=== PATIENT | male | born 1945 | race Caucasian/White ===

== ENCOUNTER → 2016-04-08 | Outpatient (CLI) | payer MEDICARE, MEDICAID ==
[2016-04-08 12:09] LABS: BAND NEUTROPHILS % 1 % (0-6); EOSINOPHILS % 7 % (0-4); MONOCYTES % 4 % (3-11); SEGMENTED NEUTROPHILS % 79 % (51-67); TOTAL CELLS COUNTED 100
[2016-04-08 12:10] LABS: RBC MORPH NORMAL (NORMAL)
== END ==
LOC: LAB 10:43
PROVIDERS: ATTEND Family Medicine
DX: F20.81 Schizophreniform disorder (principal)
CPT/HCPCS: 36415; 85007; 85027

== ENCOUNTER 2016-07-14 11:51 | Day surgery (SDC) | payer MEDICARE, MEDICAID ==
--- NOTE | 2016-07-11 14:35 | NUR ---
SPOKE TO WILMAN AMOS, BROTHER/GUARDIAN OF PATIENT. UNAWARE PATIENT WAS TO HAVE PROCEDURE DONE. NOT SURE IF HE WANTS TO GIVE CONSENT FOR PROCEDURE AT THIS TIME. WILMAN WOULD LIKE US TO CALL SISTER/GUARDIAN, ELSIE PATIÑO WHO IS AN RN AND SEE WHAT SHE THINKS.
--- NOTE | 2016-07-11 14:40 | NUR ---
MESSAGE LEFT FOR ELSIE PATIÑO TO CALL BACK.
--- NOTE | 2016-07-11 14:58 | NUR ---
ELSIE CALLS BACK. UNAWARE PATIENT IS TO HAVE PROCEDURE DONE ON THURSDAY. LAST TIME SHE SPOKE WITH HER BROTHER, HE WAS NOT HAVING DIFFICULTY URINATING. PATIENT HAS ANOTHER BROTHER(WHO IS NOT GUARDIAN) WHO IS A SURGEON. THIS BROTHER THOUGHT THE PATIENT NEEDED TO TRY FLOMAX. ELSIE WOULD LIKE TO TALK TO THIS BROTHER, THE PATIENT, WILMAN, THE OTHER GUARDIAN, AND DR. ROMERO TO SEE IF THIS PROCEDURE NEEDS TO BE DONE. ELSIE IS TO CALL BACK TO LET US KNOW WHAT THEY HAVE DECIDED. Addendum: 07/11/16 at 1543 by Moon Wilson RN WILMAN ALSO CALLS BACK STATING THAT HE WOULD CONSENT TO THE PROCEDURE IF ELSIE THOUGHT IT WAS OK.
--- NOTE | 2016-07-11 15:34 | NUR ---
ELSIE CALLS BACK STATING SHE HAS SPOKEN WITH HER BROTHER WHO IS A SURGEON AND KNOWS DR. ROMERO. SHE CONSENTS TO THE PROCEDURE AT THIS TIME. ELSIE WILL BE IN CONTACT WITH WILMAN, BROTHER/GUARDIAN AND PATIENT. SADAF MORTENSEN WITNESSES ELSIE'S PHONE CONSENT.
--- NOTE | 2016-07-11 15:45 | NUR ---
WILMAN AMOS CONTACTED TO CONFIRM CONSENT FOR PROCEDURE. WILMAN GIVES VERBAL CONSENT OVER THE PHONE. SADAF MORTENSEN WITNESSES.
[~2016-07-14] VITALS: Ht 180.3 cm; Wt 78.0 kg
[~2016-07-14 11:51] MED LIST: ACET325T38 PO; AMIT75TA2 PO; AMOX500T2 PO; AMOX775T5 PO; ASCO500T5 PO; AZIT250T5 PO; AZTH250C PO; BISA10SU6 RC; BISA5TAB8 PO; BSC10SU PR; CAPS42.56 TP; CEFD300C PO; CLN.1T PO; CLON0.1T14 PO; CLON0.5T PO; CLOZ100T PO; CYAN100088 PO; DEXT1DRO7 OP; DIVA500T7 PO; DOXY100T41 PO; EZET10TA5 PO; FERR325C PO; IBP200T PO; IBUP-1772 PO; LACTATED RINGERS 1,000 ML IV SCH; LEVO750T39 PO; LEVOFLOXACIN 500 MG TAB (LEVAQUIN) PO SCH; LIDOCAINE 2% (XYLOCAINE) 10 ML UROJECT MM ONE; LIDOCAINE 4% TOPICAL 4.5 ML SYR ONE; MAG355OR31 PO; MAG360OR57 PO; MAGN400O7 PO; MELA1TAB26 PO; MOM10U PO; NIAC500T2 PO; OXYC-200 PO; POLY17PO2 PO; SENN-115 PO; SENN-36 PO; SENN8.6T6 PO; SIMETHICONE 40 MG/0.6 ML (MYLICON DROPS) ORAL SYRINGE ONE; SODIUM CHLORIDE FLUSH 3 ML SYR IV PRN; TAMS-8 PO; TRM50T PO; ZOLP5TAB PO; ZPR80C PO; [UNRECOGNIZED DRUG - CODE] PO; [UNRECOGNIZED DRUG - CODE] PO; [UNRECOGNIZED DRUG - CODE] PO; [UNRECOGNIZED DRUG - CODE] PO
--- OUTSIDE RECORDS SUMMARY | 2016-07-14 11:55 | XMS REPORT | Continuity of Care Document ---
Author Author [facility] Organization [facility] Address Unknown Phone Unavailable Care Team Providers Care Hot Stamp Operator Name Role Phone Preet Louis MD PCP [phone] Insurance Providers Payer Name Policy Number Subscriber Name Relationship Medicare A And B [id number] Krzysztof Amos Yuliana 18 Self / Same As Patient [facility] [id number] PrakashjacintaKrzysztof F 18 Self / [facility] [id number] PrakashjacintaKrzysztof 18 Self / Same As Patient Chief Complaint and Reason for Visit Chief Complaint Altered Neurologic Status Reason for Visit Altered mental status Problems Medical Problems Problem Onset Date Status Abdominal pain 11/10/2011 Resolved Partial obstruction of small bowel 11/11/2011 Resolved History of - schizophrenia 11/11/2011 Active Bronchitis 02/23/2012 Resolved Acute upper respiratory infection 02/23/2012 Resolved Cough 04/04/2012 Resolved Injury of head ~01/01/2014 Active Injury of neck ~01/01/2014 Active Fall Unknown Active Head injury Unknown Active Gastroenteritis Unknown Active Altered mental status Unknown Active Medications Medication Dose Route Sig Days/Qty Instructions Order Date Discontinued Date Status Clonidine Hcl 0.1 Mg ORAL DAILY 11/10/11 Active Divalproex Sodium 500 Mg ORAL 2 TABS DAILY 11/10/11 Active Ferrous Sulfate 325 Mg ORAL DAILY 11/10/11 Active Niacin 500 Mg ORAL DAILY 11/10/11 01/01/14 Discontinued Ezetimibe 10 Mg ORAL DAILY 11/10/11 Active Milk Of Magnesia 5 Ml ORAL DAILY 11/10/11 Active Bisacodyl 10 Mg RECTAL DAILY 11/10/11 Active Acetaminophen 325 Mg ORAL 2 TABS TID 11/10/11 Active Tamsulosin Hcl 0.4 Mg ORAL DAILY 11/10/11 11/19/11 Discontinued Polyethylene Glycol 3350 25.5 Gm ORAL TWICE A DAY 11/10/11 Active Sennosides 8.6 Mg ORAL TID PO 11/10/11 11/19/11 Discontinued Guaifenesin 100 Mg ORAL 2 TSP PRN 11/10/11 11/19/11 Discontinued Magnesium Hydroxide/Al Hydrox 355 Ml ORAL 10CC HS 11/10/11 11/19/11 Discontinued Clonazepam 0.5 Mg ORAL TWICE A DAY 11/10/11 Active Ibuprofen 200 Mg ORAL THREE TIMES A DAY 11/10/11 11/19/11 Discontinued Divalproex Sodium 500 Mg ORAL DAILY 11/10/11 11/19/11 Discontinued Amoxicillin 500 Mg ORAL NEEDED 6 Qty 11/10/11 11/19/11 Discontinued Amoxicillin 500 Mg ORAL NEEDED 3 Qty 11/10/11 11/19/11 Discontinued Amitriptyline Hcl 75 Mg ORAL DAILY 11/10/11 11/19/11 Discontinued Clozapine 100 Mg ORAL DAILY 5 Qty 11/10/11 11/19/11 Discontinued Ziprasidone 160 Mg ORAL DAILY 11/10/11 Active Dextran 70/Hypromellose 1 Each OPTHALMIC NEEDED 11/10/11 Discontinued Capsaicin/Menthol 42.5 Gm TOPICAL NEEDED 11/10/11 11/19/11 Discontinued Bisacodyl 10 Mg RECTAL DAILYPRN 11/19/11 Active Senna 1 Ea ORAL THREE TIMES A DAY 11/19/11 Active Levofloxacin 750 Mg ORAL DAILY 11/19/11 04/04/12 Discontinued Azithromycin 250 Mg ORAL DAILY 4 Days 11/19/11 01/01/14 Discontinued Amoxicillin 1 Tab ORAL THREE TIMES A DAY 30 Qty 02/23/12 01/01/14 Discontinued Doxycycline Hyclate 1 Tab ORAL TWICE A DAY 20 Qty 02/23/12 04/04/12 Discontinued Clozapine 100 Mg ORAL BEDTIME 04/04/12 Active Doxycycline Hyclate 1 Tab ORAL TWICE A DAY 20 Qty 04/04/12 Active Tramadol Hcl 50 Mg ORAL DIRECTED 01/01/14 Active Oxycodone Hcl/Acetaminophen 1-2 Tab ORAL DIRECTED PRN PAIN Active Social History No social history. Hospital Discharge Instructions No hospital discharge instructions. Plan of Care Discharge Date 04/14/14 2:38pm Disposition 01 HOME OR SELF-CARE Condition at Discharge Stable Instructions/Education Provided ALTERED LEVEL OF CONSCIOUSNESS Prescriptions See Medications Section Referrals Preet Louis MD Additional Instructions/Education You should follow up with your family doctor if you keep have periods of excessive somnolence. Your blood tests, vital signs and examination today were all normal. Your EKG and brain CT scan from last week were normal. Some of your test results may not be complete prior to your leaving the Emergency Department. The Emergency Department is not authorized to give test results over the phone. Please contact the doctor's office listed in this packet of information for your final results. Follow up with your primary care physician or return to the Emergency Department for worsening or worrisome symptoms. * Emergency Department phone number: [phone], x [phone]* MEDICAL RECORD If you need copies of your X-rays, call [phone]. If you need copies of your medical record, including lab results, a signed authorization for release of records will be required. A telephone call for release of Health Information is not allowed. BILLING Billing can sometimes be confusing and frustrating. To help avoid confusion in the future, please take a moment to acquaint yourself with the billing parties for services. SERVICE BILLING [employer] Emergency Room Services [facility] Physician [facility] Patients will receive bills for services from the appropriate provider. If you have any questions about your [facility] bill, our staff will be happy to assist you. Please call [phone], and ask for the billing department. THANK YOU for choosing [facility] as your emergency care provider! Functional Status No functional status results. Allergies, Adverse Reactions, Alerts Allergen Type Severity Reaction Status Last Updated atorvastatin calcium Allergy Active 11/10/11 Immunizations No immunization records. Vital Signs Acute Vital Signs Vital Response Date/Time Temperature (Fahrenheit) 97.0 Pulse 76 bpm Respirations 16 Height 5 ft 5 in Weight 150 lb Body Mass Index 24.0 kg/m^2 Results Test Source Date Result Interp. Ref. Range Comments Alanine Aminotransferase (ALT/SGPT) April 14, 2014 12:40pm 24 U/L L 30-65 Albumin April 14, 2014 12:40pm 4.1 g/dL N 3.4-5.0 Albumin/Globulin Ratio April 14, 2014 12:40pm 2.157 H 1.1-1.8 Alkaline Phosphatase April 14, 2014 12:40pm 76 U/L N 38-126 Anion Gap April 14, 2014 12:40pm 13.2 MEQ/L N 3-15 Anisocytosis April 04, 2012 4:45pm 1+ Aspartate Amino Transf (AST/SGOT) April 14, 2014 12:40pm 17 U/L N 15- 37 Atypical Lymphocytes April 04, 2012 4:45pm 3 % <1 B-Type Natriuretic Peptide April 14, 2014 12:40pm 10 PG/ML N 0-100 BUN/Creatinine Ratio April 14, 2014 12:40pm 15 N 10-20 Band Neutrophils % April 04, 2012 4:45pm 8 % H 0-6 Basophils # (Auto) April 14, 2014 12:40pm 0.0 10^3uL Basophils % April 04, 2012 4:45pm 0 % N 0-1 Basophils (%) (Auto) April 14, 2014 12:40pm 0 % N 0-2 Blood Morphology Comment April 04, 2012 4:45pm See reference NORMAL Blood Urea Nitrogen April 14, 2014 12:40pm 12 mg/dL N 7-18 C-Reactive Protein April 14, 2014 12:40pm < 0.50 MG/DL 0.0-0.9 Calcium Level April 14, 2014 12:40pm 9.0 mg/dL N 8.8-10.8 Calcium/Ionized Calcium Ratio April 14, 2014 12:40pm 4.4 mg/dL N 3.8- 4.6 Calculated Osmolality April 14, 2014 12:40pm 271 mosm/L L 280-300 Carbon Dioxide Level April 14, 2014 12:40pm 29 mmol/L N 22-29 Chloride Level April 14, 2014 12:40pm 102 mmol/L N 98-108 Creatine Kinase MB April 14, 2014 12:40pm 0.5 NG/ML N 0.0-6.0 Creatinine April 14, 2014 12:40pm 0.79 mg/dL L 0.8-1.5 Differential Total Cells Counted April 04, 2012 4:45pm 100 Eosinophils # (Auto) April 14, 2014 12:40pm 0.0 10^3uL Eosinophils % April 04, 2012 4:45pm 0 % N 0-5 Eosinophils (%) (Auto) April 14, 2014 12:40pm 0 % N 0-4 Estimat Glomerular Filtration Rate April 14, 2014 12:40pm 118.0 Estimated GFR (Non- April 14, 2014 12:40pm 97.5 Glucose Level April 14, 2014 12:40pm 98 mg/dL DN 70-110 Hematocrit April 14, 2014 12:40pm 41.20 % N 39.00-50.00 Hemoglobin April 14, 2014 12:40pm 13.9 g/dL N 13.5-17.0 Influenza Virus Type A Antibody April 04, 2012 4:45pm Negative Influenza Virus Type B Antibody April 04, 2012 4:45pm Negative Lymphocytes # (Auto) April 14, 2014 12:40pm 2.3 X10^3 Lymphocytes % April 04, 2012 4:45pm 21 % N 16-34 Lymphocytes (%) (Auto) April 14, 2014 12:40pm 29 % N 20-46 Magnesium Level April 14, 2014 12:40pm 2.3 mg/dL N 1.6-2.3 Mean Corpuscular Hemoglobin April 14, 2014 12:40pm 30.5 PG N 26.0- 34.0 Mean Corpuscular Hemoglobin Concent April 14, 2014 12:40pm 33.7 g/dL N 31.0-37.0 Mean Corpuscular Volume April 14, 2014 12:40pm 90 FL N 80-100 Mean Platelet Volume April 14, 2014 12:40pm 10.8 FL H 6.0-9.5 Metamyelocytes % April 04, 2012 4:45pm 0 % N 0-1 Monocytes # (Auto) April 14, 2014 12:40pm 1.1 X10^3 Monocytes % April 04, 2012 4:45pm 14 % H 2-12 Monocytes (%) (Auto) April 14, 2014 12:40pm 14 % H 3-11 Neutrophils # (Auto) April 14, 2014 12:40pm 4.4 X10^3 Neutrophils (%) (Auto) April 14, 2014 12:40pm 56 % N 51-67 Phosphorus Level April 14, 2014 12:40pm 3.9 MG/DL DN 2.4-4.9 Platelet Count April 14, 2014 12:40pm 211 10^3uL N 150-450 Polychromasia April 04, 2012 4:45pm 1+ Potassium Level April 14, 2014 12:40pm 4.1 mmol/L N 3.5-5.1 Red Blood Count April 14, 2014 12:40pm 4.56 10^6uL N 4.50-5.50 Red Cell Distribution Width April 14, 2014 12:40pm 13.1 % N 11.8- 15.6 Segmented Neutrophils % April 04, 2012 4:45pm 54 % N 50-70 Smear Scan October 31, 2013 3:12pm NO PLATELET CLUMPS SEEN Sodium Level April 14, 2014 12:40pm 140 mmol/L N 135-150 Stool Occult Blood (ICT) November 28, 2013 10:00pm Positive NEGATIVE Thyroid Stimulating Hormone (TSH) April 08, 2014 2:00pm 1.68 UIU/mL N 0.46-4.68 Total Bilirubin April 14, 2014 12:40pm 0.3 mg/dL N 0.1-1.0 Total Creatine Kinase April 14, 2014 12:40pm 31 U/L DL 55-170 Total Protein April 14, 2014 12:40pm 6.0 g/dL L 6.4-8.5 Troponin I April 14, 2014 12:40pm < 0.012 ng/mL 0.010-0.080 Ur Tricyclic Antidepressants Screen April 08, 2014 1:50pm Positive H Negative Urine collection method Clean Catch Urine Amphetamines Screen April 08, 2014 1:50pm Negative Negative Urine collection method Clean Catch Urine Bacteria November 10, 2011 2:15pm None seen /HPF Collected by nurse? YHas specimen been collected/obtained? Y Specimen Comment: call dr. jay with result Urine Barbiturates Screen April 08, 2014 1:50pm Negative Negative Urine collection method Clean Catch Urine Benzodiazepines Screen April 08, 2014 1:50pm Negative Negative Urine collection method Clean Catch Urine Bilirubin April 08, 2014 1:50pm Negative Negative Urine collection method Clean Catch Urine Blood April 08, 2014 1:50pm Negative Negative Urine collection method Clean Catch Urine Cannabinoids Screen April 08, 2014 1:50pm Negative Negative Urine collection method Clean Catch Urine Clarity April 08, 2014 1:50pm Clear Urine collection method Clean Catch Urine Cocaine Screen April 08, 2014 1:50pm Negative Negative Urine collection method Clean Catch Urine Collection Type April 08, 2014 1:50pm Clean catch Urine collection method Clean Catch Urine Color April 08, 2014 1:50pm Yellow Urine collection method Clean Catch Urine Glucose (UA) April 08, 2014 1:50pm Negative Negative Urine collection method Clean Catch Urine Ketones April 08, 2014 1:50pm Negative Negative Urine collection method Clean Catch Urine Leukocyte Esterase April 08, 2014 1:50pm Negative Negative Urine collection method Clean Catch Urine Methadone Screen April 08, 2014 1:50pm Negative Negative Urine collection method Clean Catch Urine Methamphetamines Screen April 08, 2014 1:50pm Negative NEGATIVE Urine collection method Clean Catch Urine Nitrite April 08, 2014 1:50pm Negative Negative Urine collection method Clean Catch Urine Opiates Screen April 08, 2014 1:50pm Negative Negative Urine collection method Clean Catch Urine Oxycodone Screen April 08, 2014 1:50pm Negative NEGATIVE Urine collection method Clean Catch Urine Phencyclidine Screen April 08, 2014 1:50pm Negative Negative Phencyclidine testing by this method can showcross-reactivity with several common medications such as venlafaxine, dextromethorphan, and diphenhydramine. Submission of any positive sample for confirmatory testing is recommended. Urine Propoxyphene Screen April 08, 2014 1:50pm Negative NEGATIVE Results of this screen are qualitative and are presumptiveresults. A more specific method (i.e. GC/MS) must be used if confirmation of results is indicated. Urine Protein April 08, 2014 1:50pm Negative Negative Urine collection method Clean Catch Urine RBC November 10, 2011 2:15pm 5-10 /HPF H Collected by nurse? YHas specimen been collected/obtained? Y Specimen Comment: call dr. jay with result Urine Specific [place] April 08, 2014 1:50pm 1.020 1.005-1.030 Urine collection method Clean Catch Urine Squamous Epithelial Cells November 10, 2011 2:15pm 0-2 /LPF Collected by nurse? YHas specimen been collected/obtained? Y Specimen Comment: call dr. jay with result Urine Urobilinogen April 08, 2014 1:50pm 0.2 mg/dL 0.2-1.0 Urine collection method Clean Catch Urine WBC November 10, 2011 2:15pm 0-2 /HPF Collected by nurse? YHas specimen been collected/obtained? Y Specimen Comment: call dr. jay with result Urine White Blood Cell Casts November 10, 2011 2:15pm Rare /LPF Collected by nurse? YHas specimen been collected/obtained? Y Specimen Comment: call dr. jay with result Urine pH April 08, 2014 1:50pm 8.0 5.0 - 8.0 Urine collection method Clean Catch Valproic Acid (Depakene) Level April 08, 2014 2:00pm 26 ug/mL L 50- 100 White Blood Count April 14, 2014 12:40pm 7.87 10^3uL N 4.0-11.0 Blood Culture Peripheral-:Lab Indicates After [place] February 23, 2012 6: 20am No Growth in 5 days Procedures No known history of procedures. Encounters Encounter Location Date/Time Registered Emergency Room [facility] 04/14/14 12:04pm Departed Emergency Room [facility] 04/08/14 1:15pm Recent Diagnosis
[2016-07-14 12:00] VITALS: BP 135/81
[2016-07-14 12:30] VITALS: BP 132/83
--- NOTE | 2016-07-14 13:06 | OPERATIVE REPORT ---
DATE OF OPERATION: 07/14/2016 PRE-OPERATIVE DIAGNOSIS: Urinary retention and urinary frequency POST-OPERATIVE DIAGNOSIS: Urinary retention and urinary frequency, likely BPH. OPERATIVE PROCEDURE: Cystoscopy SURGEON: Lucius Selby MD ANESTHESIA: Local COMPLICATIONS: None SPECIMENS: None BLOOD LOSS: None. None replaced. PROCEDURE: The patient was brought to the operating room and he is prepped and draped supine on the cart. Then 2% lidocaine gel was instilled per the urethra. A flexible cystoscopy was performed. The anterior urethra is normal. The posterior urethra shows predominantly lateral lobe hypertrophy. There is substantial evidence of previous inflammation. There is no stricture. The ureteral orifices appear normal. There is heavy trabeculation with some cellular formation and shallow diverticula of the bladder. There is no evidence of stone, tumor or foreign object. The scope was withdrawn and the patient is taken in stable condition to the post anesthesia care unit.
== END 2016-07-14 12:50 | disposition home or self-care (01) ==
LOC: ASC 11:51
PROVIDERS: ATTEND Urology
DX: N40.1 Benign prostatic hyperplasia with lower urinary tract symptoms (principal); R33.9 Retention of urine, unspecified; R35.0 Frequency of micturition; N32.3 Diverticulum of bladder; N32.89 Other specified disorders of bladder; I10 Essential (primary) hypertension
CPT/HCPCS: 52000; A9270